=== PATIENT | female | born 1970 | race Caucasian/White ===

== ENCOUNTER 2017-08-15 09:13 | Emergency (ER) | payer MEDICAID, OTHER ==
[~2017-08-15] VITALS: Ht 162.6 cm; Wt 67.0 kg
[2017-08-15 15:30] VITALS: BP 106/65
== END 2017-08-15 18:11 | disposition home or self-care (01) ==
LOC: ER 09:13
DX: J45.909 Unspecified asthma, uncomplicated (principal); E07.9 Disorder of thyroid, unspecified
CPT/HCPCS: 71045; 81025; 93005; 99284